=== PATIENT | female | born 1940 | race Caucasian/White ===

== ENCOUNTER 2017-03-16 04:46 | Emergency (ER) | payer MEDICARE, OTHER ==
[~2017-03-16] VITALS: Ht 162.6 cm; Wt 50.0 kg
[~2017-03-16 04:46] MED LIST: ASPI325T PO; ATEN25 PO; FLUT1DIS3 IH; FOLI-74 PO; IBUP-2070 PO; LEVO50 PO; ROSU10 PO; SIMV-259 PO; VALS1TAB48 PO; VENL-53 PO
[2017-03-16] MEDS ORDERED: MEGE400O4 PO (05:31)
[2017-03-16] MEDS ORDERED: LORA0.5T2 PO (05:31)
[2017-03-16] MEDS ORDERED: MIRT15 PO (05:31)
[2017-03-16] MEDS ORDERED: DSS100 PO (05:31)
[2017-03-16] MEDS ORDERED: HYDR-309 PO (05:31)
[2017-03-16] MEDS ORDERED: VALS80TA26 PO (05:31)
[2017-03-16] MEDS ORDERED: MULT-248 PO (05:31)
[2017-03-16] MEDS ORDERED: LACT30L PO (05:31)
[2017-03-16] MEDS ORDERED: SODIUM CHLORIDE 0.9% 500 ML IV ONE (09:30)
[2017-03-16 09:59] LABS: BASOPHILS % (AUTO) 0.2 % (0.0-2.0); EOSINOPHILS % (AUTO) 0 % (1.0-6.0); HEMOGLOBIN 11.2 g/dL (12.0-16.0); LYMPHOCYTES # (AUTO) 0.9 K/uL (1.0-4.8); LYMPHOCYTES % (AUTO) 7.4 % (22.0-44.0); MEAN CORPUSCULAR HEMOGLOBIN 32.3 pg (26.0-34.0); MEAN CORPUSCULAR HGB CONC 33.9 G/dL (31.0-37.0); MEAN CORPUSCULAR VOLUME 95 fL (80-100); MONOCYTES # (AUTO) 0.9 K/uL (0.1-1.0); MONOCYTES % (AUTO) 7.3 % (2.0-9.0); NEUTROPHILS # (AUTO) 10.6 K/uL (1.8-7.7); NEUTROPHILS % (AUTO) 85.1 % (40.0-70.0); PLATELET COUNT (AUTO) 275 K/uL (150-450); RED BLOOD CELL COUNT(AUTO) 3.46 MIL/uL (4.00-5.20); RED CELL DISTRIBUTION WIDTH 13.6 % (11.5-14.5); WHITE BLOOD COUNT (AUTO) 12.5 K/uL (4.5-11.0)
[2017-03-16 10:01] LABS: RBC MORPHOLOGY COMMENT NORMAL RBC MORPH
[2017-03-16 10:13] LABS: ALBUMIN 2.9 g/dL (3.4-5.0); BILIRUBIN,TOTAL 1.3 mg/dL (0.1-1.0); CALCIUM, TOTAL 8.4 mg/dL (8.8-10.5); CREATININE 0.96 mg/dL (0.60-1.30); TOTAL PROTEIN, SERUM 7.6 g/dL (6.4-8.2)
[2017-03-16 10:21] LABS: POTASSIUM 2.9 mmol/L (3.5-5.1)
[2017-03-16] MEDS ORDERED: POTASSIUM CHLORIDE 20 MEQ ER TABLET PO ONE (10:45)
[2017-03-16] MEDS ORDERED: ATEN50TA PO (10:46)
[2017-03-16 11:34] LABS: ADD UA MICROSCOPIC YES; APPEARANCE,URINE CLOUDY (CLEAR); GLUCOSE, URINE (UA) NEGATIVE (NEGATIVE); KETONES,URINE TRACE mg/dL (NEGATIVE); LEUKOCYTE ESTERASE ,URINE NEGATIVE (NEGATIVE); OCCULT BLOOD,URINE LARGE (NEGATIVE); PROTEIN,URINE POS 1+ (NEGATIVE)
[2017-03-16 11:41] LABS: RBC,URINE 51-100 /HPF (0-2)
[2017-03-16 11:42] LABS: RENAL EPITHELIAL CELLS,URINE Few /LPF (None Seen); WBC,URINE 0-2 /HPF (0-5)
[2017-03-16 12:38] VITALS: BP 121/68
[2017-03-16] MEDS ORDERED: CIPROFLOXACIN HCL 250 MG TABLET PO ONE (13:15)
== END 2017-03-16 13:31 | disposition home or self-care (01) ==
LOC: EMS 04:47
DX: S01.81XA Laceration without foreign body of other part of head, initial encounter (principal); F03.90 Unspecified dementia, unspecified severity, without behavioral disturbance, psychotic disturbance, mood disturbance, and anxiety; R31.9 Hematuria, unspecified; J44.9 Chronic obstructive pulmonary disease, unspecified; I10 Essential (primary) hypertension; E78.00 Pure hypercholesterolemia, unspecified; E03.9 Hypothyroidism, unspecified; Z79.82 Long term (current) use of aspirin; Z88.6 Allergy status to analgesic agent; Z88.8 Allergy status to other drugs, medicaments and biological substances; W19.XXXA Unspecified fall, initial encounter; Y93.89 Activity, other specified; Y92.091 Bathroom in other non-institutional residence as the place of occurrence of the external cause; Y99.8 Other external cause status
CPT/HCPCS: 36415; 70450; 71010; 72040; 80053; 81001; 84484; 85025; 93005; 96360; 96361; 99285; J7040

== ENCOUNTER 2017-06-22 19:23 | Emergency (ER) | payer MEDICARE, OTHER ==
[~2017-06-22] VITALS: Ht 165.1 cm; Wt 50.0 kg
[~2017-06-22 19:23] MED LIST changes: +ASPI-1213 PO; -ASPI325T PO; -ATEN25 PO; +ATEN50TA PO; +DSS100 PO; -FLUT1DIS3 IH; -FOLI-74 PO; +HYDR-309 PO; -IBUP-2070 PO; +LACT30L PO; +LORA0.5T2 PO; +MEGE400O4 PO; +MIRT15 PO; +MULT-248 PO; -ROSU10 PO; -SIMV-259 PO; -VALS1TAB48 PO; +VALS80TA26 PO; -VENL-53 PO; +[UNRECOGNIZED DRUG - CODE] IV
[2017-06-22] MEDS ORDERED: AUD NEB (19:41)
[2017-06-22] MEDS ORDERED: ACET-784 PO (19:41)
[2017-06-22] MEDS ORDERED: DIVA125SP PO (19:41)
[2017-06-22] MEDS ORDERED: PANT40TA25 PO (19:41)
[2017-06-22] MEDS ORDERED: LEVO100 PO (19:41)
[2017-06-22 20:54] LABS: BASOPHILS % (AUTO) 0.3 % (0.0-2.0); EOSINOPHILS % (AUTO) 1.9 % (1.0-6.0); HEMATOCRIT 31.6 % (36-46); HEMOGLOBIN 10.6 g/dL (12.0-16.0); LYMPHOCYTES # (AUTO) 0.8 K/uL (1.0-4.8); LYMPHOCYTES % (AUTO) 10.7 % (22.0-44.0); MEAN CORPUSCULAR HEMOGLOBIN 34.3 pg (26.0-34.0); MEAN CORPUSCULAR HGB CONC 33.5 G/dL (31.0-37.0); MEAN CORPUSCULAR VOLUME 102 fL (80-100); MONOCYTES % (AUTO) 12.3 % (2.0-9.0); NEUTROPHILS # (AUTO) 5.8 K/uL (1.8-7.7); NEUTROPHILS % (AUTO) 74.8 % (40.0-70.0); PLATELET COUNT (AUTO) 227 K/uL (150-450); RED BLOOD CELL COUNT(AUTO) 3.09 MIL/uL (4.00-5.20); RED CELL DISTRIBUTION WIDTH 12.6 % (11.5-14.5); WHITE BLOOD COUNT (AUTO) 7.7 K/uL (4.5-11.0)
[2017-06-22 21:03] LABS: APPEARANCE,URINE CLEAR (CLEAR); GLUCOSE, URINE (UA) NEGATIVE (NEGATIVE); KETONES,URINE NEGATIVE (NEGATIVE); LEUKOCYTE ESTERASE ,URINE NEGATIVE (NEGATIVE); OCCULT BLOOD,URINE MODERATE (NEGATIVE); PROTEIN,URINE TRACE (NEGATIVE)
[2017-06-22 21:04] LABS: ALBUMIN 2.9 g/dL (3.4-5.0); BILIRUBIN,TOTAL 0.4 mg/dL (0.1-1.0); CALCIUM, TOTAL 8.6 mg/dL (8.8-10.5); CREATININE 1.06 mg/dL (0.60-1.30); TOTAL PROTEIN, SERUM 7.7 g/dL (6.4-8.2)
[2017-06-22 21:08] LABS: POTASSIUM 2.4 mmol/L (3.5-5.1)
[2017-06-22 21:20] LABS: ADD UA MICROSCOPIC YES
[2017-06-22] MEDS ORDERED: SODIUM CHLORIDE 0.9% 250 ML IV ONE (21:29)
[2017-06-22 21:30] LABS: RBC MORPHOLOGY COMMENT ABNORMAL RBC MORPH
[2017-06-22] MEDS ORDERED: POTASSIUM CHLORIDE 10% 40 MEQ/30 ML LIQUID UDCUP PO ONE (21:30)
[2017-06-22] MEDS ORDERED: POTASSIUM CHL 10 MEQ/WATER 50 ML IV ONE (21:30)
[2017-06-22 21:32] LABS: SQUAMOUS EPITHELIAL CELL,UR Few /LPF (None Seen)
[2017-06-22 21:33] LABS: WBC,URINE 0-2 /HPF (0-5)
[2017-06-22] MEDS ORDERED: SODIUM CHLORIDE 0.9% 500 ML IV ONE (21:45)
[2017-06-23 00:02] VITALS: BP 124/71
[2017-06-23 00:19] LABS: CALCIUM, TOTAL 8.4 mg/dL (8.8-10.5); CREATININE 1.19 mg/dL (0.60-1.30); POTASSIUM 3.7 mmol/L (3.5-5.1)
== END 2017-06-23 01:08 | disposition home or self-care (01) ==
LOC: EMS 19:25
DX: S00.03XA Contusion of scalp, initial encounter (principal); E87.6 Hypokalemia; F03.90 Unspecified dementia, unspecified severity, without behavioral disturbance, psychotic disturbance, mood disturbance, and anxiety; I10 Essential (primary) hypertension; E44.0 Moderate protein-calorie malnutrition; E78.00 Pure hypercholesterolemia, unspecified; E03.9 Hypothyroidism, unspecified; J44.9 Chronic obstructive pulmonary disease, unspecified; Z79.82 Long term (current) use of aspirin; Z68.1 Body mass index [BMI] 19.9 or less, adult; W01.0XXA Fall on same level from slipping, tripping and stumbling without subsequent striking against object, initial encounter; Y93.89 Activity, other specified; Y92.89 Other specified places as the place of occurrence of the external cause; Y99.8 Other external cause status
CPT/HCPCS: 36415; 70450; 80048; 80053; 80164; 81001; 85025; 93005; 96360; 99285; J3480; J7040; J7050